=== PATIENT | female | born 1965 | race Caucasian/White ===

== ENCOUNTER 2023-05-31 05:58 | Day surgery (SDC) | payer OTHER, SELFPAY ==
[2023-05-31] VITALS (7 sets, daily range): BP systolic 95–129; BP diastolic 69–91; PULSE 68–85; RESP 16; TEMP 36.4–37.2; O2SAT 98–100; BMI 26.2
--- NOTE | 2023-05-31 | EMB_PTH ---
PATIENT: KAIN XIONG LOC: [facility] – [place] U#:[id number] AGE/SX: 58/F ROOM: RE05/31/[address]: Dr. Ariana Rubin DO : 1965 BED: DIS: 05/31/2023 SPEC #: [id number] RECD: 05/31/23 10:55 STATUS: RAFY REQ #: [id number] YANCI: 05/31/23 00:[address]: Ariana Rubin DEPT: SURGICAL PATHOLOGY RECD BY: Juan Cabrera ENTERED: 05/31/23 10:55 SP TYPE: ENDOM BX/C OT DR: Dr. Beverly Lees MD Tissues: Endometrium, NOS Procedures: Surgery Specimen Level IV HEADER OPERATION: Hysteroscopy, D & C, IUD insertion PRE-OP DIAGNOSIS: Abnormal uterine bleeding TISSUE SUBMITTED: Endometrial curettings MICROSCOPIC DIAGNOSIS Endometrium, curettings: Polypoid fragments of transition endometrium with focal glandular breakdown. Rare strips of benign superficial endocervix. AM:aly 06/03/2023 MICROSCOPIC DESCRIPTION Slides are reviewed. GROSS DESCRIPTION Received in fixative is one container labeled with the patient's name and designated endometrial curettings. The specimen consists of multiple irregular fragments of dark red-lance soft tissue that in aggregate measure 5.0 x 3.0 x 0.2 cm. The specimen is totally submitted in two cassettes. / AM:aly 05/31/2023 TC:5 CPT: 44515
[2023-05-31 06:30] LABS: Internal QC Validated? YES +Cl - CLEAR BKGD; Pregnancy, Urine Negative Negative
[2023-05-31] MEDS: Lactated Ringers 1,000 ML 15 ML IV (06:44)
[2023-05-31] MEDS: Levonorgestrel IUD (Liletta) 1 EACH INTRA-UTER (07:58)
--- NOTE | 2023-05-31 08:07 | PCM.OPRPT ---
Problems Associated Problem List Diagnoses (1) DUB (dysfunctional uterine bleeding): (2) Menorrhagia: (3) Fibroid uterus: Report of Operation Date of Procedure: 05/31/23 Pre-Operative Diagnosis: DUB, menorrhagia, fibroid uterus, endometrial polyp on pelvic ultrasound Post-Operative Diagnosis: DUB, menorrhagia, fibroid uterus Surgery/Procedure Performed:: Hysteroscopy, D&C, Liletta IUD insertion Description of Surgical Findings:: Good descent of uterus and cervix. Uterus sounded to 9 cm in length. Normal-appearing endometrium. No polyps or submucosal fibroids noted within the cavity. Bilateral tubal ostia visualized. Surgeon: Ariana Rubin embossing machine operator: None Type of Anesthesia: MAC Special Medications: None Specimen's removed: Endometrial curettings Drains: None Estimated Blood Loss (mL): < 50 cc Fluids Replaced: 500 cc deficit Description of Procedure: The patient was taken to the operating room where MAC anesthesia was found to be adequate. She was prepped and draped in the dorsal lithotomy position using yellowfin stirrups. A weighted speculum was placed in the vagina to expose the cervix. The anterior lip of the cervix was grasped with a single-tooth tenaculum. The cervix was serially dilated to accommodate the Symphion hysteroscope. The Symphion hysteroscope was advanced into the uterus, and the uterus was distended with normal saline as distention media. Bilateral tubal ostia were visualized. The uterine cavity was normal-appearing. No polyps or fibroids were noted within the cavity. The hysteroscope was then removed. No endocervical polyps were noted upon removal of the hysteroscope. A sharp curettage was performed for a moderate amount of tissue. Endometrial cuttings were sent to pathology for review. The uterus sounded to 9 cm. The Liletta IUD was inserted to the fundus of the uterus in usual sterile fashion. The IUD strings were trimmed to 2 cm in length. Bleeding was hemostatic. All instruments were removed from the vagina. A vaginal sweep was performed. Instrument and sponge counts were correct. The patient was taken to the recovery room in stable condition. Grafts/Implants Used: None Procedure Start Time: 07:28 Procedure Stop Time: 08:05 Complications None Admit VTE Documentation VTE Present on Admission: No VTE Mechan Device Prophylaxis: SCD's
--- NOTE | 2023-05-31 08:36 | DCINST_ITS ---
Discharge Instructions Diet Discharge Diet: No restrictions Activity Discharge Activity: May Drive (once you are more than 24 hours out from anesthesia) and May Shower (once you are more than 24 hours out from anethesia) May resume sexual activity in: 1-2 weeks (no intercourse, tampons, soaking in water for 1 week) Weight Bearing Status: Weight bearing as tolerated Dressing / Incision Call your doctor if you observe: Fever of 101 or Higher, Coldness, Increased Pain, Numbness or Tingling, Change in Color, Inability to urinate, Inability to have a bowel movement, Using more than 1 pad per hour, Shortness of breath, Dizziness, Fainting spells, Swelling in the ankles, Chest pain, Increased palpitations (irregular heartbeat), Calf discomfort and Uncontrolled pain Follow Up Care Please Follow Up With: Ariana Rubin DO When: 1-2 weeks Test Results: Test results from this visit will be discussed in further detail at your follow- up appointment, if applicable. Discharge Plan Admission Primary Reason for Your Visit: surgery Attending Provider: Ariana Rubin Primary Care Provider: Beverly Lees Discharge Orders/Prescriptions Prescriptions: Continued venlafaxine 75 mg tablet 150 mg PO DAILY levothyroxine 50 mcg tablet 50 mcg PO DAILY Patient Comments: TAKE 1 TABLET BY MOUTH EVERY DAY TAKE ON EMPTY STOMACH FOR THYROID Referrals / Follow Up: Beverly Lees MD [Primary Care Provider] - Disposition Disposition (needs filled in before D/C Order can be placed): Home, Self Care
== END 2023-05-31 09:14 | disposition home or self-care (01) ==
LOC: SDC 06:00 → AC 06:01
PROVIDERS: PCP Internal Medicine; Referring Provider Obstetrics & Gynecology; Visit Provider Obstetrics & Gynecology
PROC: 0UB98ZZ Excision of Uterus, Via Natural or Artificial Opening Endoscopic (ICD-10-PCS; CPT 58558; principal; 2023-05-31 07:15)
DX: Z30.430 Encounter for insertion of intrauterine contraceptive device (principal); D25.9 Leiomyoma of uterus, unspecified; N92.4 Excessive bleeding in the premenopausal period; N93.8 Other specified abnormal uterine and vaginal bleeding; E07.9 Disorder of thyroid, unspecified; E78.00 Pure hypercholesterolemia, unspecified; Z79.890 Hormone replacement therapy; F32.A Depression, unspecified; Z79.899 Other long term (current) drug therapy
CPT/HCPCS: 58558; 58300; 00952; 36415; 81025; 86850; 86900; 86901; 88305; J7120; J2405

== ENCOUNTER 2024-07-10 08:40 | Day surgery (SDC) | payer OTHER, SELFPAY ==
--- NOTE | 2024-07-02 14:11 | EKG12_ITS ---
Test Reason : PREOP Blood Pressure : */* mmHG Vent. Rate : 87 BPM Atrial Rate : 87 BPM P-R Int : 116 ms QRS Dur : 62 ms QT Int : 358 ms P-R-T Axes : 74 73 71 degrees QTcB Int : 430 ms Normal sinus rhythm Normal ECG Confirmed by TROY GARNICA, JARAD ([id number]), newspaper photo editor HANY ABRAMS ([id number]) on 07/03/2024 6:28:08 AM Referred By: Ariana Rubin Confirmed By: JARAD SIMMONS MD
[2024-07-02 15:25] LABS: Hematocrit 37.8 % (37-47); Hemoglobin 12.5 g/dL (12.0-15.0); Mean Corp Hgb Conc 33.1 g/dL (32-36); Mean Corpuscular Hgb 30.7 pg (27.0-32.0); Mean Corpuscular Volume 92.9 fL (81-99); Platelet Count 401 K/mm3 (150-450); RBC Distribution Width CV 13.8 % (11.6-14.6); RBC Distribution Width SD 47.3 fl (35.1-43.9); Red Blood Count 4.07 M/mm3 (4.2-5.4); White Blood Count 8.7 K/mm3 (4.4-11.0)
[2024-07-02 15:36] LABS: International Normalized Ratio 0.9; Prothrombin Time (Protime)PT. 12.5 SECONDS (11.7-14.9)
[2024-07-02 15:37] LABS: Partial Thromboplast Time 27.4 Seconds (24.1-36.2)
[2024-07-02 15:49] LABS: Magnesium 2.1 mg/dL (1.6-2.6)
[2024-07-10] VITALS (13 sets, daily range): BP systolic 92–117; BP diastolic 54–78; PULSE 69–106; RESP 16; TEMP 36.2–37.3; O2SAT 95–100; BMI 26.2
[2024-07-10] MEDS: Enoxaparin 40 MG/0.4 ML Syringe SC (09:20)
[2024-07-10] MEDS: Celecoxib 200 MG Capsule 400 MG PO (09:21)
[2024-07-10] MEDS: 0.9% Normal Saline (1000mL) 1,000 ML 15 ML IV (09:21)
[2024-07-10] MEDS: Gabapentin 600 MG Tablet PO (09:21)
[2024-07-10] MEDS: Acetaminophen 500 MG Tablet 1000 MG PO (09:21)
[2024-07-10] MEDS: Phenazopyridine 95 MG Tablet 190 MG PO ×2 (09:21→09:22)
[2024-07-10] MEDS: Magnesium 1 GM over 15 mins IV (09:23)
[2024-07-10] MEDS: metroNIDAZOLE 500 MG/100 ML BAG 100 MG IV (09:24)
--- NOTE | 2024-07-10 09:28 | PRE.ANES_ITS ---
ASA Classification* ASA Classification ASA Classification: 2 Assessment & Plan Anesthesia* Anesthesia Assessment Anesthesia Assessment: Discussed sedation and/or anesthesia options, risks, benefits, and alternatives with patient/parents/legal guardian/POA. Questions invited. The patient/parents/legal guardian/POA seems to understand and agrees to proceed with anesthesia plan. Reviewed the physical assessment, medical history, allergy history and patient home medications list prior to surgery/procedure/anesthetic and documented any changes. Performed airway and anesthesia risk assessments. Anesthesia Type Anesthesia Type: General Anesthesia Focused Assessment* Temperature: 99.1 F Pulse Rate: 92 Blood Pressure: 117/78 Respiratory Rate: 16 Pulse Ox: 100 Airway Assessment Mouth opens: >3 cm Mallampati Score: II Focused Labs Anesthesia Preop lab: CBC WBC 8.7 K/mm3 (4.4-11.0) 07/02/24 14:42 RBC 4.07 M/mm3 (4.2-5.4) L 07/02/24 14:42 Hgb 12.5 g/dL (12.0-15.0) 07/02/24 14:42 Hct 37.8 % (37-47) 07/02/24 14:42 Plt Count 401 K/mm3 (150-450) 07/02/24 14:42 CHEMISTRY Magnesium 2.1 mg/dL (1.6-2.6) 07/02/24 14:42 TSH 2.700 uIU/mL (0.358-3.740) 07/02/24 14:42 COAG PT 12.5 SECONDS (11.7-14.9) 07/02/24 14:42 Urine Test Negative Negative 05/31/23 06:05 Pre-Assessment Diagnosis/Proposed Procedure Planned Operative Procedure(s): HYSTERECTOMY TLH BILAT SALPINGO-OOPHERECTOMY CYSTO Anesthesia History 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 When Was Last Pacemaker Check QUESTION #4 FULL TEXT: You/Your Family Experience fever (hyperthermia) with Anesthesia Last Oral Intake Last Oral intake: Last Oral Intake NPO since 06:30 07/10/24 09:17 Meds taken in AM with sips of No 07/10/24 09:17 water? Meds patient instructed to take am of surgery PONV PONV - horticulture instructor: PONV - horticulture instructor Female Yes 06/23/24 11:15 HX of Motion Sickness No 06/23/24 11:15 HX of N/V After Surgery No 06/23/24 11:15 Non-Smoker Yes 06/23/24 11:15 Duration of Surgery greater Yes 06/23/24 11:15 than 60 minutes Number of Risk Factors 3 06/23/24 11:15 PONV Score Moderate Risk 06/23/24 11:15 Height & Weight Height & Weight: Anesthesia: Height & Weight Height 5 ft 3 in 07/10/24 09:17 Weight: 67 kg 07/10/24 09:17 Body Mass Index (BMI) 26.2 07/10/24 09:17 Respiratory Assessment Respiratory Assessment - horticulture instructor: Respiratory Tract Infection Hx - horticulture instructor Hx Respiratory Tract Infection No 06/23/24 11:15 STOP Sleep Apnea STOP Sleep Apnea - horticulture instructor: STOP Sleep Apnea - horticulture instructor Hx Hypertension No 06/23/24 11:15 Hx Sleep Apnea No 06/23/24 11:15 CPAP BIPAP Do you snore loudly (louder No 06/23/24 11:15 than talking or can be heard Do you often feel tired/ Yes 06/23/24 11:15 fatigued/ sleepy during daytime? Has anyone observed you stop No 06/23/24 11:15 breathing during sleep? STOP Results Negative 06/23/24 11:15 QUESTION #5 FULL TEXT : Do you snore loudly (louder than talking or can be heard through closed doors)? 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 Specify any problems Hx of Preganancy in last 3 No 06/23/24 11:15 Months Nurse Filling Out Transfusion DSCHRIBER 06/23/24 11:15 & Questions: Date: 06/23/24 06/23/24 11:15 Time: 11:17 06/23/24 11:15 Patient unable to answer at this time (ie. confused, unrespo /Reproduction History /Reproductive History - horticulture instructor: /Reproductive Hx- horticulture instructor Hx Now No 06/23/24 11:15 Gestational Age (in weeks): EDC: Hx Hx Para Hx Section SAB No 06/23/24 11:15 Active Medications Active Medications: Current Medications Generic Name Dose Route Start Last Admin Trade Name Freq PRN Reason Stop Dose Admin Acetaminophen 1,000 mg 07/10/24 10:35 07/10/24 09:21 Acetaminophen 500 Mg Tablet PO 07/10/24 10:36 1,000 mg PREOP ONE Administration Celecoxib 400 mg 07/10/24 10:35 07/10/24 09:21 Celecoxib 200 Mg Capsule PO 07/10/24 10:36 400 mg X1 ONE Administration Enoxaparin Sodium 40 mg 07/10/24 10:35 07/10/24 09:20 Enoxaparin 40 Mg/0.4 Ml Syringe SC 07/10/24 10:36 40 mg X1 ONE Administration Gabapentin 600 mg 07/10/24 10:35 07/10/24 09:21 Gabapentin 600 Mg Tablet PO 07/10/24 10:36 600 mg PREOP ONE Administration Cefazolin Sodium 2 gm/ N/A 20 mls @ 400 mls/hr 07/10/24 10:35 IV 07/10/24 10:37 PREOP ONE Metronidazole 500 mg in 100 mls @ 100 mls/hr 07/10/24 10:35 07/10/24 09:24 Flagyl IV 07/10/24 11:34 100 mls/hr PREOP ONE Administration Magnesium Sulfate 1 gm/ 102 mls @ 408 mls/hr 07/10/24 10:35 07/10/24 09:23 Dextrose IV 07/10/24 10:49 408 mls/hr X1 ONE Administration Sodium Chloride 1,000 mls @ 15 mls/hr 07/10/24 08:50 07/10/24 09:21 IV 07/15/24 22:09 15 mls/hr .Q48H STACY Administration Protocol Insulin Human Lispro 0 unit 07/10/24 10:35 Insulin Lispro 100 Unit/Ml Insuln.Pen SC 07/10/24 18:00 Q4H PRN PRN BG >/= 180, SEE PROTOCOL Protocol Ondansetron HCl 4 mg 07/10/24 10:35 Ondansetron 4 Mg/2 Ml Vial IV 07/10/24 10:36 X1 ONE Phenazopyridine HCl 190 mg 07/10/24 10:35 07/10/24 09:22 Phenazopyridine 95 Mg Tablet PO 07/10/24 10:36 190 mg X1 ONE Administration PFSH Medical History Anxiety Alcohol use Thyroid disease Anemia Non-smoker Home Medications ?Medication ?Instructions ?Recorded ?Last Taken ?Type levothyroxine 50 mcg tablet 50 mcg PO DAILY 05/27/23 05/31/23 History venlafaxine 75 mg tablet 150 mg PO DAILY 05/27/23 05/30/23 History Allergy/AdvReac Type Severity Reaction Status Date / Time No Known Allergies Allergy Verified 07/10/24 09:17 Surgical History History of hysteroscopy History of colonoscopy History of Social History Smoking Status: Never smoker Review of Systems (Anesthesia) ROS Narrative System reviewed and no additional complaints, except as documented.
[2024-07-10 09:42] LABS: Bedside Glucose 79 mg/dL (74-106)
--- NOTE | 2024-07-10 10:35 | HYST_PTH ---
PATIENT: KAIN XIONG LOC: [facility] – [place] U#:[id number] AGE/SX: 59/F ROOM: RE07/10/[address]: Dr. Ariana Rubin DO : 1965 BED: DIS: 07/10/2024 SPEC #: [id number] RECD: 07/10/24 17:48 STATUS: RAFY REManfred #: [id number] YANCI: 07/10/24 10:[address]: Ariana Rubin DEPT: SURGICAL PATHOLOGY RECD BY: Citlalli Lr ENTERED: 07/13/24 09:28 SP TYPE: HYSTERECT OTHR DR: Dr. Beverly Lees MD Tissues: Uterus, NOS Procedures: Surgery Specimen Level V HEADER OPERATION: Total laparoscopic hysterectomy, bilateral salpingo-oopherectomy PRE-OP DIAGNOSIS: Dysfunctional uterine bleeding, uterine leiomyoma, adenomyosis TISSUE SUBMITTED: Uterus, cervix, bilateral fallopian tubes and ovaries MICROSCOPIC DIAGNOSIS Uterus, cervix, bilateral fallopian tubes, bilateral ovaries, hysterectomy, bilateral salpingo-oopherectomy: Cervix - Chronic cystic cervicitis. Endometrium - Proliferative endometrium with focal autolytic changes. Myometrium - Intramural and submucosal leiomyomas (largest measuring 5.0cm in greatest diameter). - Focal adenomyosis. Bilateral fallopian tubes- no pathologic diagnosis. Right ovary - Physiologic follicular cyst. Left ovary- no pathologic diagnosis. 07/14/2024 MICROSCOPIC DESCRIPTION Slides are reviewed. GROSS DESCRIPTION Received in fixative is one container labeled with the patient's name and designated uterus, cervix, bilateral fallopian tubes, bilateral ovaries. The specimen consists of a hysterectomy specimen consisting of uterus with cervix and attached bilateral fallopian tubes and ovaries. The uterus with cervix weighs 222 gm and measures 10.0 x 8.0 x 6.0 cm. The serosal surface is lance glistening and unremarkable. The ectocervical mucosa is unremarkable. The external os is slit-like in contour. The endocervical canal measures 3.2 cm in length and the endocervical mucosa is lance glistening and unremarkable. Sections of cervix reveal a few cysts filled with mucoid material. The endometrial cavity is saucer shaped and compressed to one side due to presence of submucosal nodular masses and measures 5.5 cm in length and 3.5 cm in width. The endometrium is lance glistening without any mass lesions and measures 0.1 cm in thickness. Sections of uterine wall reveal three nodular masses. The largest submucosal nodular mass measures 5.0cm in diameter. Smaller intramural nodular masses measures 0.5 and 1.5cm in greatest dimension. Sections of these masses reveal lance whorled cut surfaces without areas of hemorrhage, necrosis or cystic degeneration. Uterine wall measures up to 2.5cm in thickness. Right fallopian tube measures 6.0cm in length and 0.6cm in diameter. Fimbrial end is identified. No tuboovarian adhesions are noted. Sections reveal unremarkable cut surfaces. Soft to cystic right ovary measures 3.5 x 2.0 x 1.2cm. Sections reveal a cyst filled with serosanguineous fluid and measures 1.2cm in greatest dimension. The left fallopian tube measures 6.5cm in length and 0.5cm in diameter. It has a similar appearance as to the right fallopian tube. The left ovary measures 2.7 x 2.0 x 1.0cm. Sections reveal unremarkable cut surfaces. Milk Receiver sections are submitted in twelve cassettes as follows: 1 - anterior cervix, 2 - posterior cervix, 3 & 4 - anterior uterine wall, 5 & 6 - posterior uterine wall, 7-8- largest submucosal nodular mass, 9- smaller intramural nodular masses, 10- right fallopian tube, 11- right ovary, 12- left fallopian tube and ovary. SJ: 07/13/2024 TC:1 CPT: 56789
[2024-07-10] MEDS: Cefazolin 2 GM in Syringe IV (11:18)
[2024-07-10] MEDS: Bupivacaine Mpf 0.5% 30 ML VIAL (13:01)
[2024-07-10] MEDS: Ondansetron 4 MG/2 ML Vial IV (13:10)
--- NOTE | 2024-07-10 13:11 | PCM.DC ---
Discharge Instructions Diet Discharge Diet: No restrictions DC O2, CPAP, BIPAP needs Home O2 Discharge instructions: No Dressing / Incision Discharge Activity: May Drive (Once you are more than 24 hours out from surgery. Once you are strong enough to slam on a brake or turn a steering wheel sharply, and no longer needing pain medication) and May Shower (Once you are more than 24 hours out from surgery) May resume sexual activity in: 6-8 weeks (Nothing in the vagina and no soaking in water until your 6 week follow up) Ice area for (Minutes): 15 Weight Bearing Status: Weight bearing as tolerated Lifting Restrictions: Nothing heavier than 10 pounds, and no pushing or pulling for 6 weeks Additional Activity Instructions:: You will have gas pains that can radiate into your shoulders. Alternate Tylenol 650 mg every 6 hours and Ibuprofen 600 mg every 6 hours for the pain Stay hydrated. You can use Miralax, Colace, prune or pear juice to assist with bowel movements You will have vaginal spotting Dressing / Incision Call your doctor if your incision/area has: Continuous Slow Oozing, Sudden Increased Bleeding, Increased Pain/ Swelling, Increased Redness, Foul Smelling Discharge and Swelling at the incision site Call your doctor if you observe: Fever of 101 or Higher, Coldness, Increased Pain, Numbness or Tingling, Inability to urinate, Inability to have a bowel movement, Using more than 1 pad per hour, Shortness of breath, Dizziness, Fainting spells, Swelling in the ankles, Chest pain, Increased palpitations (irregular heartbeat), Calf discomfort and Uncontrolled pain Suture Line Care: Avoid Pulling/Pushing Remove Dressing in: leave in place till F/U (There are sutures under your skin that will dissolve in 6 weeks. The glue will start to peel up. You can leave the glue, peel it off, or cut the raised edges) Cleanse incision/area with: Soap & Water Follow Up Care Please Follow Up With: Ariana Rubin DO When: 1-2 weeks post op 6 weeks for post op exam Test Results: Test results from this visit will be discussed in further detail at your follow-up appointment, if applicable. Discharge Plan Admission Primary Reason for Your Visit: surgery Attending Provider: Ariana Rubin Primary Care Provider: Beverly Lees Instructions Print Language: Montserratian Discharge Orders/Prescriptions Prescriptions: New docusate sodium [Colace] 100 mg capsule 100 mg PO BID PRN PRN (Reason: constipation) Qty: 30 0RF Continued venlafaxine 75 mg tablet 150 mg PO DAILY levothyroxine 50 mcg tablet 50 mcg PO DAILY Patient Comments: TAKE 1 TABLET BY MOUTH EVERY DAY TAKE ON EMPTY STOMACH FOR THYROID Referrals / Follow Up: Beverly Lees MD [Primary Care Provider] - Disposition Disposition (needs filled in before D/C Order can be placed): Home, Self Care
--- NOTE | 2024-07-10 13:16 | PCM.OPRPT ---
Problems Associated Problem List Diagnoses (1) Fibroid uterus: (2) Menorrhagia: (3) DUB (dysfunctional uterine bleeding): Operative Report (Standard) Operative Information Date of Procedure: 07/10/24 Pre-Operative Diagnosis: DUB, fibroid uterus Post-Operative Diagnosis: As above Surgery/Procedure Performed: TLH, BSO, cystoscopy oil pipeline dispatcher: Yes Orthopedic Cast Specialist: Zeenat Butt Tasks completed by first officer: Closing, Dissecting tissue, Removing tissue, Altering tissue, Insert Trochanter, Hemostasis: Electrocautery and Retracting Type of Anesthesia: General RN Documented Start/Stop Times: Operation Date: 07/10/24 10:35 Case Time Into Pre-Op 07/10/24 08:47 Out of Pre-Op 07/10/24 10:49 Anesthesia Start 07/10/24 10:54 Into Room 07/10/24 10:54 Procedure Start 07/10/24 11:18 Procedure End 07/10/24 13:08 Anesthesia End 07/10/24 13:25 Out of Room 07/10/24 13:25 Procedure Start Time: 11:18 Procedure Stop Time: 13:08 Select all DRAINS/GRAFTS/IMPLANTS that apply: None Special Medications: None Estimated Blood Loss: 75 mL Fluids Replaced: See anesthesia record Specimen collected: Yes Description of specimen(s) removed: Uterus, cervix, bilateral fallopian tubes and ovaries Description of surgery: The patient was taken to the operating room. A surgical timeout was completed. General anesthesia was induced. The patient was prepped and draped in the dorsal lithotomy position using yellowfin stirrups in usual sterile fashion. A weighted speculum was placed in the vagina to expose the cervix. The anterior lip of the cervix was grasped with a single-tooth tenaculum. The uterine manipulator was inserted. A Lane catheter was inserted into the bladder as well to drain the urine. The single-tooth tenaculum and the weighted speculum removed from the vagina. Gloves were changed and attention was turned to the abdominal portion of the procedure. Local was infiltrated at all port sites. The uterus was enlarged, and given exam decision was made to make a supraumbilical incision. Incision was made just above the umbilicus to accommodate a 5 mm port. The 5 mm port was placed using the laparoscope under direct visualization. Once confirmed intraperitoneal, CO2 insufflation was initiated. No injury was noted upon entry. The patient was placed in steep Trendelenburg position. A left lateral 5 mm port was placed. A right lateral 5 mm port was placed. No injury again was noted upon entry. The uterus was upheld from below. The bilateral ureters were identified. The left IP ligament was identified by elevating the left fallopian tube and the IP ligament was clamped and cauterized in 3 overlapping regions after watching the ureter peristalsing. The left IP ligament was then transected. The pedicle was hemostatic. The left round ligament was transected, and the anterior leaflet of the broad ligament was dissected down towards the peritoneal reflection at the base of the bladder and adjacent to the cervix to create a bladder flap. The same process was repeated on the right side to transect the right IP ligament, and transect the right round ligament. Peristalsis was noted of the right ureter, and the right pedicle was hemostatic. The right anterior leaflet of the broad ligament was dissected such that both sides met in the midline. The bladder was dissected from the lower uterine segment, and tissues skeletonized. The uterine arteries were then bilaterally clamped and ligated. The pedicles were hemostatic. The vaginal vault was incised circumferentially at the level of the cup of the uterine manipulator using the monopolar hook. The uterus, cervix, bilateral fallopian tubes, bilateral ovaries were removed through the vagina. From below vaginally, the pedicles were noted hemostatic. There was oozing noted from the posterior aspect of the vaginal cuff, which was run with a 2-0 Vicryl suture in a running locked fashion to achieve hemostasis. The vaginal cuff was closed in horizontal direction using several interrupted 0 Vicryl sutures. Sutures were trimmed. Vaginal cuff was closed and hemostatic. A cystoscopy was performed in usual sterile fashion noting a normal-appearing bladder with good bilateral ureteral jets. The cystoscope was then removed. The Lane catheter was reinserted into the bladder. The sponge stick was placed into the vagina. Gloves were changed and attention was turned to the abdominal portion of the procedure again. The abdomen was reinsufflated and the laparoscope was inserted. The pelvis was irrigated. There was an area along the left side of the vaginal cuff that was oozing, and hemostasis was achieved using cautery with the LigaSure device. Dilma was placed over the pedicles and vaginal cuff. Hemostasis was again noted. The abdomen was exsufflated. The skin was closed with 4-0 Monocryl and glue. From below the Lane catheter and vaginal sponge stick were removed. A vaginal sweep was performed. Sponge, instrument, sharp counts were correct x 2 the patient was taken to the recovery room is stable and good condition. Surgical Findings: Enlarged fibroid uterus weighing over 250 grams. Bilateral fallopian tubes and ovaries normal appearing. Minimal bladder adhesions to the uterus. Normal appearing pelvic CDS. Complications Complications: No Admit VTE Documentation VTE Present on Admission: No VTE Mechan Device Prophylaxis: SCD's
--- NOTE | 2024-07-10 13:31 | PCM.POST.ANE ---
Anesthesia: Postop Eval I Current Vital Signs Temperature: 97.2 F Pulse Rate: 106 Blood Pressure: 106/71 Respiratory Rate: 16 Pulse Ox: 96 Assessment Airway patent: Yes Spontaneous unlabored respirations: Yes nausea: No Vomiting: No Anesthesia Complication: No Fluid Hydration Crystalloid volume administer (ml): 2,000 Total IV fluid infused: 2,000 Progress Note Anesthesia document: Postop Eval 1 completed: Yes
--- NOTE | 2024-07-10 13:32 | PCM.POSTANE2 ---
Anesthesia Postop Eval I Sum Postop Eval Completion status Anesthesia document: Postop Eval 1 completed: Yes Anesthesia Postop Eval I Summary Anesthesia Postop Eval I Summary: Anesthesia Postop Eval I: Assessment Summary Airway patent Yes 07/10/24 13:31 Spontaneous unlabored Yes 07/10/24 13:31 respirations Mental status nausea No 07/10/24 13:31 Vomiting No 07/10/24 13:31 Anesthesia Postop Eval I: Fluid Summary Crystalloid volume administer 2,000 07/10/24 13:31 (ml) Colloids volume administered ( ml) Blood Product volume administered (ml) Total IV fluid infused 2,000 07/10/24 13:31 Anesthesia Postop Eval I: Summary Notes Anesthesia Complication No 07/10/24 13:31 Anesthesia Complication Comment: Post-operative progress note Anesthesia: Postop Eval II Evaluation Mental status: Awake Pain Level: 0 nausea: No Vomiting: No
[2024-07-10] MEDS: Ketorolac 30 MG/ML Syringe IM (16:13)
== END 2024-07-10 18:45 | disposition home or self-care (01) ==
LOC: SDC 08:46 → AC 08:47
PROVIDERS: Anesthesiology; PCP Internal Medicine; Referring Provider Obstetrics & Gynecology; Visit Provider Obstetrics & Gynecology
PROC: 0UT94ZZ Resection of Uterus, Percutaneous Endoscopic Approach (ICD-10-PCS; CPT 58571; principal; 2024-07-10 10:15)
DX: D25.1 Intramural leiomyoma of uterus (principal); D25.0 Submucous leiomyoma of uterus; N92.0 Excessive and frequent menstruation with regular cycle; N93.8 Other specified abnormal uterine and vaginal bleeding; N72 Inflammatory disease of cervix uteri; N80.03 Adenomyosis of the uterus; N83.01 Follicular cyst of right ovary; E03.9 Hypothyroidism, unspecified; Z79.890 Hormone replacement therapy; Z79.899 Other long term (current) drug therapy
CPT/HCPCS: 58571; 00840; 36415; 82962; 83735; 84443; 85027; 85610; 85730; 88307; 93005; J2405; J3475